=== PATIENT | female | born 2000 | race Caucasian/White ===

== ENCOUNTER → 2022-08-09 | Outpatient (REF) | payer OTHER | LOC: M WUC 19:50 | PROVIDERS: ATTEND Physician Assistant | DX: J06.9 Acute upper respiratory infection, unspecified (principal); Z20.828 Contact with and (suspected) exposure to other viral communicable diseases ==

== ENCOUNTER → 2022-11-18 | Outpatient (REF) | payer OTHER ==
[2022-11-18 17:34] LABS: GC DNA AMPLIFICATION NEGATIVE (NEGATIVE)
== END ==
LOC: M SFHCWAGY 13:05
PROVIDERS: ATTEND Obstetrics & Gynecology
DX: Z11.3 Encounter for screening for infections with a predominantly sexual mode of transmission (principal); Z12.4 Encounter for screening for malignant neoplasm of cervix
CPT/HCPCS: 87661; 87810; 87850; G0123

== ENCOUNTER 2023-03-06 07:28 | Day surgery (SDC) | payer OTHER ==
[~2023-03-06] VITALS: Ht 162.6 cm; Wt 50.8 kg
[~2023-03-06 07:28] MED LIST: ADDE10CA3 PO; LEXA1TAB PO; METHYFOLATE PO; VYVA30CA4 PO; XULA1DIS
[2023-03-06] MEDS ORDERED: LR 1,000 ML IV SCH ×2 (08:10→11:10)
[2023-03-06 08:15] LABS: HEMATOCRIT 40.6 % (36.0-47.0); HEMOGLOBIN 13.3 g/dl (12.0-15.5); MEAN CORPUSCULAR HEMOGLOBIN 29.8 pg (27.0-33.0); MEAN CORPUSCULAR HGB CONC 32.8 g/dl (32.0-36.5); MEAN CORPUSCULAR VOLUME 90.8 fl (80.0-96.0); PLATELET COUNT, AUTOMATED 202 10^3/uL (150-450); RED BLOOD COUNT 4.47 10^6/uL (4.00-5.40); WHITE BLOOD COUNT 6.3 10^3/uL (4.0-10.0)
[2023-03-06] MEDS ORDERED: fentaNYL 100 MCG/2 ML INJECTION As Ordered ONE (08:15)
[2023-03-06] MEDS ORDERED: MIDAZOLAM INJ 2MG/2ML VIAL As Ordered ONE (08:15)
[2023-03-06] MEDS ORDERED: LIDOCAINE 2% 100MG/5ML SDV (FOR ANES.) As Ordered ONE (08:15)
[2023-03-06] MEDS ORDERED: ROCURONIUM BROMIDE 50MG/5ML VIAL As Ordered ONE (08:15)
[2023-03-06] MEDS ORDERED: propofoL 200 MG/20 ML VIAL As Ordered ONE (08:15)
[2023-03-06] MEDS ORDERED: ONDANSETRON 4MG 2ML VIAL As Ordered ONE (08:16)
[2023-03-06] MEDS ORDERED: ACETAMINOPHEN 1000MG 100ML IV BAG As Ordered ONE (09:58)
[2023-03-06] MEDS ORDERED: SUGAMMADEX SODIUM 500 MG/5 ML VIAL (BRIDION) As Ordered ONE (10:03)
[2023-03-06] MEDS ORDERED: KETOROLAC 60MG 2ML VIAL As Ordered ONE (10:03)
[2023-03-06] MEDS: BUPIVACAINE HCL 0.25% 30ML VIAL As Ordered ONE ×2 (10:08→11:00)
[2023-03-06] MEDS ORDERED: METHYLENE BLUE 0.5% (5MG/ML) 10 ML AMP (PROVAYBLUE) As Ordered ONE (10:31)
[2023-03-06] MEDS ORDERED: ONDANSETRON 4MG 2ML VIAL IV PRN (11:10)
[2023-03-06] MEDS ORDERED: fentaNYL 100 MCG/2 ML INJECTION IV PRN (11:10)
[2023-03-06] MEDS ORDERED: oxyCODONE 5MG TAB PO PRN (11:10)
[2023-03-06] MEDS ORDERED: HYDROMORPHONE HCL 0.5 MG/ 0.5 ML SYRINGE IV PRN (11:10)
[2023-03-06] MEDS ORDERED: PERC5TAB12 PO (11:43)
[2023-03-06] MEDS ORDERED: IBUP80TA PO (11:44)
[2023-03-06] MEDS ORDERED: COLA100C5 PO (11:45)
[2023-03-06] MEDS ORDERED: ONDA4TAB6 PO (11:45)
== END 2023-03-06 12:44 | disposition home or self-care (01) ==
LOC: M SDC 07:28
PROVIDERS: ATTEND Obstetrics & Gynecology
DX: R10.2 Pelvic and perineal pain (principal); N80.9 Endometriosis, unspecified; Z30.430 Encounter for insertion of intrauterine contraceptive device; F12.10 Cannabis abuse, uncomplicated; F17.200 Nicotine dependence, unspecified, uncomplicated; K21.9 Gastro-esophageal reflux disease without esophagitis; D64.9 Anemia, unspecified; F41.9 Anxiety disorder, unspecified; F32.A Depression, unspecified; Z79.899 Other long term (current) drug therapy
CPT/HCPCS: 36415; 58300; 58350; 58662; 81025; 85027; 86850; 86900; 86901; J0131; J1100; J1885; J2250; J2405; J3010; Q9968; S0020

== ENCOUNTER 2024-07-28 13:24 | Emergency (ER) | payer BC, OTHER ==
[~2024-07-28] VITALS: Ht 162.6 cm; Wt 51.4 kg
[~2024-07-28 13:24] MED LIST changes: +COLA100C5 PO; +IBUP80TA PO; +ONDA-282 PO; +PERC5TAB12 PO
[2024-07-28 13:25] VITALS: BP 116/74; TEMP 97.7; O2SAT 99
[2024-07-28] MEDS ORDERED: EXCETAB32 PO (13:34)
[2024-07-28 17:52] LABS: HCG, SERUM QUALITATIVE NEGATIVE (NEGATIVE)
[2024-07-28] MEDS ORDERED: METH-1164 PO (18:32)
== END 2024-07-28 18:39 | disposition home or self-care (01) ==
LOC: M ED 13:24
DX: M54.50 Low back pain, unspecified (principal); V49.40XA Driver injured in collision with unspecified motor vehicles in traffic accident, initial encounter; Y92.410 Unspecified street and highway as the place of occurrence of the external cause; Y99.9 Unspecified external cause status; Y93.9 Activity, unspecified; F32.A Depression, unspecified; F41.9 Anxiety disorder, unspecified; F90.9 Attention-deficit hyperactivity disorder, unspecified type